=== PATIENT | female | born 1975 | race Two or more races ===

== ENCOUNTER 2019-09-17 17:59 | Emergency (ER) | payer SELFPAY ==
[~2019-09-17] VITALS: Ht 157.5 cm; Wt 49.9 kg
[2019-09-17 18:15] VITALS: BP 133/70
--- NOTE | 2019-09-17 18:15 | NUR ---
ED Nurse Note: Patient BIBA from the street d/t overdose. Patient was found unconsious in the middle of the street with pinpoint pupils. Patient given 4 mg Narcan and became extremely combative and agressive. Patient then given Versed 1 mg. Patient currently sleeping, respirations 98, 100% O2 on the monitor. Airway patent and protected. Dr. Holder at bedside.
--- NOTE | 2019-09-17 18:29 | Emergency Room Report ---
History of Present Illness General Chief Complaint: Overdose Source: EMS Present Illness HPI Unknown aged Remberto Kitchen presents with altered mental status patient was seen on the streets with pinpoint pupils, patient was given Narcan which woke her up she became very combative patient was then given Versed to sedate her, patient is unable to give a history her conditions aggravated by drugs alleviated by not taking drug severity is severe lasting minutes just prior to arrival patient presents for evaluation Allergies: Coded Allergies: UNABLE TO ASSESS (Unverified , 09/17/19) COVID-19 Screening Contact w/high risk pt: No Recent Travel to affected area: No Experienced COVID-19 symptoms?: No Patient History Limited by: medical condition - Currently asleep Social History: Reports: drug use Reviewed Nursing Documentation: PMH: Agreed; PSxH: Agreed Review of Systems All Other Systems: limited - Currently sedated Physical Exam Vital Signs Date Time Temp Pulse Resp B/P (MAP) Pulse Ox O2 Delivery O2 Flow Rate FiO2 09/17/19 18:06 98.1 116 24 133/70 (91) 98 Room Air Sp02 EP Interpretation: reviewed, normal General Appearance: no apparent distress Head: normocephalic, atraumatic, other - Lice present in hair Eyes: bilateral eye PERRL - Pinpoint pupils, bilateral eye EOMI ENT: hearing grossly normal, normal voice Neck: full range of motion, supple Respiratory: no respiratory distress, no accessory muscle use Neurologic: responsive Skin: no rash Medical Decision Making Diagnostic Impression: Primary Impression: Drug overdose Qualified Codes: T50.901A - Poisoning by unspecified drugs, medicaments and biological substances, accidental (unintentional), initial encounter ER Course 45 Lana Kitchen presents with acute overdose, most likely opioid given her response to Narcan patient will require airway monitoring until she wakes up will continue to observe patient Patient signed out to nighttime Dr. Aguiar to reevaluate and disposition patient Last Vital Signs Date Time Temp Pulse Resp B/P (MAP) Pulse Ox O2 Delivery O2 Flow Rate FiO2 09/17/19 18:06 98.1 116 24 133/70 (91) 98 Room Air Disposition: HOME, SELF-CARE Condition: Stable Referrals: [facility] Patient Instructions: Opioid Use Disorder Additional Instructions: The patient was provided with discharge instructions, notified to follow-up with a primary care doctor and or specialist in the next 24-48 hours, and to return to the ED if they have worsening of their symptoms. Please note that this report is being documented using [employer] technology. This can lead to erroneous entry secondary to incorrect interpretation by the dictating instrument. Phuc Holder MD Sep 17, 2019 18:29
--- NOTE | 2019-09-17 19:05 | NUR ---
HAND-OFF: Report given to Renetta SUTTON.
[2019-09-17 19:09] VITALS: BP 132/76
--- NOTE | 2019-09-17 19:09 | NUR ---
ED Nurse Note: Received report from Arnaldo SUTTON. Pt seen sleeping in bed. Not in any distress. Noted with mutiple hair lice on the head. VSS. Will cont to monitor.
--- NOTE | 2019-09-17 19:49 | NUR ---
ED Nurse Note: Pt moved to OB room. Pt is in no acute distress. Report received from LESLEY Jackson. Will cont. to monitor.
--- NOTE | 2019-09-17 21:00 | NUR ---
ED Nurse Note: Pt appears to be sleeping in bed with eyes closed. No acute distress noted. Breating is normal and unlabored. Will cont. to monitor.
[2019-09-17 22:30] VITALS: BP 132/76
--- NOTE | 2019-09-17 22:30 | NUR ---
ELOPEMENT: Pt asked staff where she was at and then walked out of ED. Pt does not appear to be altered, is speaking in full sentences and is amublatory with steady gait. Pt refused to disclose residence or plan upon leaving the ED. Pt also refused any services offered by ED such as nourishment, clothes and placement options. All medical devices such as ID band removed. Pt is in no acute distress.
--- NOTE | 2019-09-17 22:52 | Emergency Room Report ---
Physical Exam Vital Signs Date Time Temp Pulse Resp B/P (MAP) Pulse Ox O2 Delivery O2 Flow Rate FiO2 09/17/19 18:06 98.1 116 24 133/70 (91) 98 Room Air Medical Decision Making Diagnostic Impression: Primary Impression: Drug overdose Qualified Codes: T50.901A - Poisoning by unspecified drugs, medicaments and biological substances, accidental (unintentional), initial encounter ER Course Patient signed out to me by at 2200 pending reevaluation. Patient was found on the street altered was given Narcan then became combative and was given Versed by EMS. Patient was lethargic while in the ER per prior attending. Just after shift change prior to me seeing the patient apparently she woke up asked 1 of the staff members where she was and walked out. Per staff she had no issues walking and did not appear altered. Last Vital Signs Date Time Temp Pulse Resp B/P (MAP) Pulse Ox O2 Delivery O2 Flow Rate FiO2 09/17/19 19:09 98.1 89 18 132/76 97 Room Air Disposition: HOME, SELF-CARE Condition: Stable Referrals: [facility]. [facility] Patient Instructions: Opioid Use Disorder Additional Instructions: The patient was provided with discharge instructions, notified to follow-up with a primary care doctor and or specialist in the next 24-48 hours, and to return to the ED if they have worsening of their symptoms. Please note that this report is being documented using [employer] technology. This can lead to erroneous entry secondary to incorrect interpretation by the dictating instrument. Consuelo Aguiar M.D. Sep 17, 2019 22:52
== END 2019-09-17 22:30 | disposition home or self-care (01) ==
LOC: EDBD 17:59 → EMR 18:28
DX: T50.901A Poisoning by unspecified drugs, medicaments and biological substances, accidental (unintentional), initial encounter (principal); B85.2 Pediculosis, unspecified; X58.XXXA Exposure to other specified factors, initial encounter; Y92.9 Unspecified place or not applicable
CPT/HCPCS: 99282